=== PATIENT | male | born 1940 | race Caucasian/White ===

== ENCOUNTER 2019-09-03 12:42 | Inpatient (IN) | payer MEDICARE, MEDICAID ==
[2019-09-05 08:19] VITALS: BP 137/77
[2019-09-05] MEDS ORDERED: ACETAMINOPHEN 650 MG RECTAL SUPPOSITORY PR PRN (14:00)
[2019-09-05] MEDS ORDERED: MORPHINE SULFATE 100 MG/NS/PF 100 ML IV PRN (14:00)
[2019-09-05] MEDS ORDERED: BISACODYL 10 MG RECTAL RECTAL SUPPOSITORY PR PRN (14:00)
[2019-09-05] MEDS ORDERED: LORazepam 2 MG/ML VIAL IVP PRN (14:00)
[2019-09-05] MEDS ORDERED: ONDANSETRON HCL 4 MG/2 ML VIAL IVP PRN (14:00)
[2019-09-05] MEDS ORDERED: HYOSCYAMINE SULFATE 0.125 MG TAB SL PRN (14:00)
[2019-09-05] MEDS ORDERED: HYPROMELLOSE 0.5% 15 ML OPHTHALMIC SOLUTION OU PRN (14:00)
[2019-09-05 19:25] VITALS: BP 62/44
[2019-09-06 07:49] VITALS: BP 89/44
[2019-09-06 11:19] VITALS: BP 8/44
[2019-09-06 15:56] VITALS: BP 83/60
[2019-09-06] MEDS ORDERED: MORPHINE SULFATE 2 MG/ML SYRINGE IVP PRN (18:15)
[2019-09-06 20:41] VITALS: BP 72/54
== END 2019-09-06 22:15 | disposition expired | DRG 871 ==
LOC: 6N 12:42
PROVIDERS: ADMIT Internal Medicine; ATTEND Internal Medicine
DX: A41.9 Sepsis, unspecified organism (principal); J96.01 Acute respiratory failure with hypoxia; J69.0 Pneumonitis due to inhalation of food and vomit; E43 Unspecified severe protein-calorie malnutrition; G93.41 Metabolic encephalopathy; Z66 Do not resuscitate; Z51.5 Encounter for palliative care
CPT/HCPCS: J2270